=== PATIENT | female | born 1985 | race Caucasian/White ===

== ENCOUNTER 2022-10-18 16:46 | Emergency (ER) | payer OTHER ==
[~2022-10-18] VITALS: Ht 167.6 cm; Wt 54.4 kg
[~2022-10-18 16:46] MED LIST: INTESTINEX680 MG PO; KETO10TA2 PO; PROTONIX40 MG PO; ZANTAC150 M3 PO
== END 2022-10-18 19:50 | disposition home or self-care (01) ==
LOC: ER 16:46
DX: J03.90 Acute tonsillitis, unspecified (principal)